=== PATIENT | female | born 1965 | race Caucasian/White ===

== ENCOUNTER → 2018-09-05 | Outpatient (CLI) | payer SELFPAY ==
[~2018-09-05] MED LIST: ETAN25DI SQ; MTX2.5T PO; MULT-35 PO; NAPR220T66 PO
--- NOTE | 2018-09-05 10:52 | Diagnostic Imaging Report ---
PROCEDURE: US Hepatic (Liver). TECHNIQUE: Multiple real-time grayscale images were obtained over the right upper quadrant in various projections. INDICATION: Elevated MCV. Liver is at the upper limits of normal at 18.1 cm. No discrete liver mass is identified. The portal vein is patent and shows normal direction of flow. Gallbladder is without stones or sludge. No wall thickening or biliary duct dilatation is seen. The pancreas is unremarkable. The right kidney is without evidence of calculi or hydronephrosis. There is no ascites. IMPRESSION: Unremarkable right upper quadrant ultrasound. Dictated by: Dictated on workstation # [id number]
== END ==
LOC: RAD 09:47
PROVIDERS: ATTEND Pediatrics
DX: R71.8 Other abnormality of red blood cells (principal)
CPT/HCPCS: 76705